=== PATIENT | female | born 1950 | race Hispanic/Latino ===

== ENCOUNTER → 2018-05-21 | Day surgery (SDC) | payer OTHER ==
[~2018-05-21] VITALS: Ht 157.5 cm; Wt 59.9 kg
--- NOTE | 2018-05-21 09:45 | MAMMOGRAPHY REPORT ---
EXAMINATION: MM GUIDED NEEDLE LOCALIZATION BREAST, RIGHT CLINICAL INFORMATION: Needle localization of right breast cancer. COMPARISON: Mammogram dated 03/19/2018. Stereotactic biopsy dated 04/14/2018. TECHNIQUE NEEDLE LOC: Proper informed consent is obtained from the patient after discussion of the procedure, potential risks and complications, and alternatives including declining the procedure today. Patient was given an opportunity for questions. The patient appeared to understand. The patient consented to the procedure and signed the consent form. GUIDANCE: Digital mammography. APPROACH: Medial TARGET: Biopsy clip in the 4:00 position of the right breast. ANESTHESIA: 10 mL Xylocaine 2%. LOCALIZATION MARKER: ilabs 5 cm needle. The skin was prepped and local anesthesia administered. The needle was positioned and position assessed with mammography. The wire was hooked into position. The patient tolerated the procedure well and had no immediate complication. Diagram was marked for the surgeon. The target is located around the thick segment of the wire, 1.1 cm deep to the skin with 12 cm of the wire remaining external to the skin. IMPRESSION: Status post right breast needle localization with wire hooked into position. The target is located around the thick segment of the wire, 1.1 cm deep to the skin with 12 cm of the wire remaining external to the skin.
--- NOTE | 2018-05-21 10:33 | Operative Report ---
Operative/Inv Procedure Report Surgery Date: 05/21/18 Name of Procedure: Right lumpectomy with wire localization Pre-Operative Diagnosis: Right breast DCIS Post-Operative Diagnosis: Same Estimated Blood Loss: scant Surgeon/Frame Carver Spindle: Ronna Chery MD Anesthesia: local monitored anesthesi Specimens: Right lumpectomy, cranial margin, caudal margin, medial margin, lateral margin, deep margin Operative/Procedure Note Note: Patient is status post a needle biopsy showing DCIS. She is brought to the operating room for a partial mastectomy with wire localization. Preoperative wire localization was performed and films were reviewed. He was brought to the operating room and placed under anesthesia. 2 g of Ancef was given in the right breast was prepped and draped in a sterile fashion. An inframammary incision was planned in the medial aspect of the breast about 2 cm from the wire insertion site. The subcutaneous tissue was dissected and the tissue was dissected up to the wire which was brought into the skin. There was dense adhesions of the biopsy cavity to the dermis and therefore a scalpel was used to shave the tissue off of the dermis at the wire insertion site. Superficial margin was thus dermis. A lumpectomy was performed to encompass the area of concern. The clip was visible in the anterior portion of the lumpectomy. Specimen radiograph confirmed the clip. The specimen was marked for orientation using margin map. Additional margins were taken in the cranial, caudal, medial, lateral, and deep positions. Hemostasis was adequate and the margins a lumpectomy cavity were marked using mammary clips. Deep tissue was approximated using interrupted Vicryl sutures and skin was closed using a running Biosyn subcuticular stitch. Steri-Strips and sterile dressings were applied and patient transferred to the recovery room in satisfactory condition having tolerated the procedure well.
--- NOTE | 2018-05-21 13:28 | MAMMOGRAPHY REPORT ---
EXAMINATION: MM NEEDLE LOCALIZATION SPECIMEN FROM THE BREAST, RIGHT CLINICAL INDICATION: Excision of right breast cancer. COMPARISON: Preoperative needle localization films from earlier today. TECHNIQUE: Single specimen radiograph was obtained. FINDINGS: The radiograph of the excised surgical specimen shows that the hookwire is delivered intact and the marker clip is identified in the specimen. IMPRESSION: Satisfactory excision of the targeted lesion. These findings were communicated to the surgeon in the recovery room.
== END ==
LOC: STS 05-14 07:00
DX: D05.11 Intraductal carcinoma in situ of right breast (principal); I10 Essential (primary) hypertension; Z90.710 Acquired absence of both cervix and uterus; Z79.82 Long term (current) use of aspirin
CPT/HCPCS: J0690; J2001; J2250